=== PATIENT | female | born 1955 | race Caucasian/White ===

== ENCOUNTER → 2022-04-09 | Outpatient (CLI) | payer MEDICARE, SELFPAY ==
[2022-04-09 15:19] LABS: Absolute Lymphocyte Count 1.65 X10^3/uL (0.83-4.51); Absolute Neutrophil Count 3.3 X10^3/uL (2.0-7.7); Basophil# 0.03 X10^3/uL; Basophil% 0.5 % (0-1); Eosinophil# 0.15 X10^3/uL; Eosinophils% 2.7 % (0-5); Hematocrit 40.7 % (37-47); Hemoglobin 13.3 g/dL (12.0-15.0); Lymphocyte # 1.65 X10^3/ul (0.83-4.51); Lymphocyte % 29.3 % (19-41); Mean Corp Hgb Conc 32.7 g/dL (32-36); Mean Corpuscular Hgb 30.8 pg (27.0-32.0); Mean Corpuscular Volume 94.2 fL (81-99); Mean Platelet Vol. 10.2 fl (6.2-12.0); Monocyte# 0.47 X10^3/uL; Monocyte% 8.3 % (0-10); NRBC Flagged by Analyzer 0 % (0-5); Neutrophil # 3.32 X10^3/uL (2.7-7.7); Platelet Count 349 K/mm3 (150-450); RBC Distribution Width SD 44.7 fl (35.1-43.9); Red Blood Count 4.32 M/mm3 (4.2-5.4); White Blood Count 5.6 K/mm3 (4.4-11.0)
[2022-04-09 15:29] LABS: Hemoglobin A1c 5.8 % (3.8-5.6)
[2022-04-09 15:33] LABS: ALB/GLOB Ratio 1.3 RATIO (0.9-2.4); AST(SGOT) 31 U/L (15-37); Alanine Aminotransfer ALT/SGPT 32 U/L (13-56); Albumin, Serum 4.1 g/dL (3.2-5.0); Alkaline Phosphatase 57 U/L (45-117); Anion Gap 4 (5-15); BUN 11 mg/dL (7-18); BUN/Creat Ratio 14.2 RATIO (10-20); Calcium,Total 9.4 mg/dL (8.5-10.1); Chloride 108 mmol/L (98-107); Cholesterol 155 mg/dL (200); Creatinine, Serum 0.77 mg/dL (0.55-1.02); EST Glomerular Filtration Rate 80 mL/min (>60); Est Glom Filt Rate - Afr Amer 96 mL/min (>60); Ferritin 47 ng/mL (8-252); Globulin 3.2 g/dL (2.2-4.2); Glucose 111 mg/dL (74-106); High Density Lipoprotein 72 mg/dL; Potassium 4.1 mmol/L (3.5-5.1); Protein, Total 7.3 g/dL (6.4-8.2); Sodium Level 141 mmol/L (136-145); Triglycerides 131 mg/dL; Very Low Density Lipoprotein 26 mg/dL (5-40)
== END | disposition home or self-care (01) ==
LOC: MTLAB 12:38
PROVIDERS: PCP Family Medicine; Referring Provider Family Medicine; Visit Provider Family Medicine
DX: I10 Essential (primary) hypertension (principal); R19.8 Other specified symptoms and signs involving the digestive system and abdomen; E61.1 Iron deficiency
CPT/HCPCS: 36415; 80053; 80061; 82728; 83036; 84443; 85025

== ENCOUNTER → 2022-07-28 | Outpatient (CLI) | payer MEDICARE, SELFPAY ==
--- NOTE | 2022-07-28 14:21 | CT_ITS ---
STUDY: LOW DOSE CT LUNG CANCER SCREENING REASON FOR EXAM: Female, 66 years old. SCREEN RADIATION DOSAGE (If Supplied By Facility): CTDIvol = ( 1.59 ) mGy, DLP = ( 54.40 ) mGycm TECHNIQUE: No contrast was administered. Low dose technique was utilized (average mAS-38 and kVp 120). 1.25 mm axial source images with a slice interval of 1.25-mm were reconstructed in lung windows. 2.5 mm coronal and sagittal reformats. COMPARISON: None NODULES: No suspicious pulmonary nodules. Emphysema: Lungs are diffusely hyper expanded and mildly hyperlucent. No focal consolidation, effusion, or pneumothorax. Minimal dependent subsegmental atelectasis in lung bases. Mild bilateral apical scarring. Endobronchial lesion: None Aorta: Aortic atherosclerosis without ectasia Heart: No cardiomegaly. No pericardial effusion. Multivessel mild coronary atherosclerosis. Pulmonary artery: No main pulmonary arterial enlargement. Mediastinal nodes: Scattered subcentimeter mediastinal lymph nodes, nonpathologic by size criteria. No bulky hilar adenopathy. Other chest and abdominal findings: Indeterminate posterior lateral exophytic 9 mm left renal lesion. Prior cholecystectomy. CT/Low Dose CT Lung Screening IMPRESSION: No suspicious pulmonary nodules. Indeterminate exophytic left renal 9 mm lesion. Recommend multiphasic contrast-enhanced CT or MRI to further evaluate if not stable on prior exams. IMPORTANT NOTES FOR USE: ACR Lung-RADS Version 1.1 Assessment Categories Release Date: 2018 Category: Coded 0-4 bases on nodule(s) with highest degree of suspicion. Negative screen is defined as categories 1 and 2; a positive screen is defined as categories 3 and 4. Category 3 and 4A nodules that are unchanged on interval CT should be coded as category 2, and individuals returned to screening in 12 months. Category 4X: Category 3 or 4 nodules with additional imaging findings that increase the suspicion of lung cancer, such as spiculation, GGN that doubles in size in 1 year, enlarged lymph notes, etc. Category Modifiers: S (significant finding unrelated to lung cancer) Electronically Signed: Otf Boykin MD at 10:16 EDT ,
== END | disposition home or self-care (01) ==
LOC: CT 14:17
PROVIDERS: PCP Family Medicine; Referring Provider Internal Medicine Pulmonary Disease; Visit Provider Internal Medicine Pulmonary Disease
DX: Z87.891 Personal history of nicotine dependence (principal)
CPT/HCPCS: 71271

== ENCOUNTER → 2023-01-26 | Outpatient (CLI) | payer MEDICARE, SELFPAY ==
[2023-01-26 18:16] LABS: Ferritin 60 ng/mL (8-252)
== END | disposition home or self-care (01) ==
LOC: MTLAB 15:05
PROVIDERS: PCP Family Medicine; Referring Provider Internal Medicine Pulmonary Disease; Visit Provider Internal Medicine Pulmonary Disease
DX: D50.9 Iron deficiency anemia, unspecified (principal)
CPT/HCPCS: 36415; 82728

== ENCOUNTER → 2023-07-29 | Outpatient (CLI) | payer MEDICARE, SELFPAY ==
--- NOTE | 2023-07-29 13:40 | CT_ITS ---
STUDY: LOW DOSE CT LUNG CANCER SCREENING REASON FOR EXAM: Female, 67 years old. HX SMOKING. Patient smoked half a pack per day for 30 years. COPD. RADIATION DOSAGE (If Supplied By Facility): CTDIvol = ( 1.59 ) mGy, DLP = ( 53.41 ) mGycm TECHNIQUE: No contrast was administered. Low dose technique was utilized (average mAS-38 and kVp 120). 1.25 mm axial source images with a slice interval of 1.25-mm were reconstructed in lung windows. 2.5 mm axial source images with a slice interval of 2.5-mm were reconstructed in lung windows. 5.0 mm axial source images with a slice interval of 5.0-mm were reconstructed in soft tissue windows. COMPARISON: Comparison is made with prior study dated July 28, 2022. NODULES: No suspicious nodules are seen. Emphysema: Stable scarring in the apices bilaterally worse on the right side. Mild degree of emphysematous changes. Hyperinflation. Endobronchial lesion: None Aorta: Atherosclerotic plaque formation of the aortic arch. CORONARY ARTERIES: Coronary artery calcification is seen. Heart: Unremarkable Pulmonary artery: Unremarkable Mediastinal nodes: Small mediastinal lymph nodes. Other chest and abdominal findings: CT/Low Dose CT Lung Screening IMPRESSION: Lung-RADS category 2 - Continue annual screening with LDCT in 12 months. IMPORTANT NOTES FOR USE: ACR Lung-RADS Version 1.1 Assessment Categories Release Date: 2018 Category: Coded 0-4 bases on nodule(s) with highest degree of suspicion. Negative screen is defined as categories 1 and 2; a positive screen is defined as categories 3 and 4. Category 3 and 4A nodules that are unchanged on interval CT should be coded as category 2, and individuals returned to screening in 12 months. Category 4X: Category 3 or 4 nodules with additional imaging findings that increase the suspicion of lung cancer, such as spiculation, GGN that doubles in size in 1 year, enlarged lymph notes, etc. Category Modifiers: S (significant finding unrelated to lung cancer) Electronically Signed: Norris Diamond MD at 14:30 EDT ,
== END | disposition home or self-care (01) ==
PROVIDERS: PCP Family Medicine; Referring Provider Internal Medicine Pulmonary Disease; Visit Provider Internal Medicine Pulmonary Disease
DX: Z87.891 Personal history of nicotine dependence (principal)
CPT/HCPCS: 71271

== ENCOUNTER → 2023-10-08 | Outpatient (CLI) | payer MEDICARE, SELFPAY ==
[2023-10-08 15:20] LABS: Absolute Lymphocyte Count 1.76 X10^3/uL (0.83-4.51); Absolute Neutrophil Count 3.7 X10^3/uL (2.0-7.7); Basophil# 0.03 X10^3/uL; Basophil% 0.5 % (0-1); Eosinophil# 0.17 X10^3/uL; Eosinophils% 2.6 % (0-5); Hematocrit 42.8 % (37-47); Lymphocyte # 1.76 X10^3/ul (0.83-4.51); Lymphocyte % 27.3 % (19-41); Mean Corp Hgb Conc 32.7 g/dL (32-36); Mean Corpuscular Volume 94.9 fL (81-99); Mean Platelet Vol. 10.4 fl (6.2-12.0); Monocyte# 0.75 X10^3/uL; Monocyte% 11.6 % (0-10); NRBC Flagged by Analyzer 0 % (0-5); Neutrophil # 3.72 X10^3/uL (2.7-7.7); Neutrophil % 57.8 % (47-70); Platelet Count 347 K/mm3 (150-450); RBC Distribution Width CV 12.6 % (11.6-14.6); Red Blood Count 4.51 M/mm3 (4.2-5.4); White Blood Count 6.4 K/mm3 (4.4-11.0)
[2023-10-08 15:44] LABS: Vitamin D,25 Hydroxy 58.1 ng/mL
[2023-10-08 15:50] LABS: Hemoglobin A1c 5.7 % (3.8-5.6)
[2023-10-08 16:01] LABS: ALB/GLOB Ratio 1.2 RATIO (0.9-2.4); AST(SGOT) 20 U/L (15-37); Alanine Aminotransfer ALT/SGPT 19 U/L (13-56); Alkaline Phosphatase 73 U/L (45-117); Anion Gap 6 (5-15); BUN 10 mg/dL (7-18); BUN/Creat Ratio 12.3 RATIO (10-20); Calcium,Total 9.2 mg/dL (8.5-10.1); Chloride 106 mmol/L (98-107); Cholesterol 145 mg/dL (200); Creatinine, Serum 0.82 mg/dL (0.55-1.02); EST Glomerular Filtration Rate 74 mL/min (>60); Est Glom Filt Rate - Afr Amer 90 mL/min (>60); Follicle Stimulating Hormone 69.8 mIU/mL; Globulin 3.4 g/dL (2.2-4.2); Glucose 104 mg/dL (74-106); High Density Lipoprotein 70 mg/dL; Luteinizing Hormone 37.8 mIU/mL; Potassium 4.3 mmol/L (3.5-5.1); Protein, Total 7.4 g/dL (6.4-8.2); Sodium Level 140 mmol/L (136-145); Triglycerides 67 mg/dL; Very Low Density Lipoprotein 13 mg/dL (5-40)
[2023-10-16 15:07] LABS: Estrogen, Total, Serum 67 pg/mL (40-244)
== END | disposition home or self-care (01) ==
LOC: MTLAB 12:44
PROVIDERS: PCP Family Medicine; Referring Provider Family Medicine; Visit Provider Family Medicine
DX: Z13.1 Encounter for screening for diabetes mellitus (principal); R19.7 Diarrhea, unspecified; I25.10 Atherosclerotic heart disease of native coronary artery without angina pectoris; N95.1 Menopausal and female climacteric states; R73.03 Prediabetes
CPT/HCPCS: 36415; 80053; 80061; 82306; 82672; 83001; 83002; 83036; 84443; 85025

== ENCOUNTER → 2023-11-24 | Outpatient (CLI) | payer MEDICARE, SELFPAY ==
--- NOTE | 2023-11-24 10:45 | US_ITS ---
STUDY: ULTRASOUND OF THE NECK REASON FOR EXAM: Female, 68 years old. Right cheek mass -- TECHNIQUE: Ultrasound evaluation of the right cheek mass was performed with real-time and static post-scale imaging. COMPARISON: None. FINDINGS: 1.6 x 1.3 x 0.8 cm hypoechoic lesion with internal septations in the right cheek. US/Head/Neck Soft Tissue IMPRESSION: 1.6 x 1.3 x 0.8 cm hypoechoic cystic mass with internal septations in the right cheek. Its exact location is unknown. CT neck with contrast will be more helpful for further evaluation. Electronically Signed: Montana Melendez MD at 9:30 EDT ,
== END | disposition home or self-care (01) ==
PROVIDERS: PCP Family Medicine; Referring Provider Surgery Plastic and Reconstructive Surgery; Visit Provider Surgery Plastic and Reconstructive Surgery
DX: L72.0 Epidermal cyst (principal)
CPT/HCPCS: 76536

== ENCOUNTER → 2023-11-29 | Outpatient (CLI) | payer MEDICARE, SELFPAY ==
--- NOTE | 2023-11-29 17:42 | CT_ITS ---
STUDY: CT PARANASAL SINUSES WITH CONTRAST REASON FOR EXAM: Female, 68 years old. Right cheek mass RADIATION DOSAGE (If Supplied By Facility): CTDIvol = ( 29.38 ) mGy, DLP = ( 554.8 ) mGycm TECHNIQUE: The patient was scanned in a multi-detector CT scanner. High resolution transaxial imaging was performed following the intravenous administration of IV 100mL Isovue-370. Sagittal and coronal images were reconstructed. Individualized dose optimization techniques were used for this CT. COMPARISON: None. FINDINGS: FRONTAL SINUSES: Normal development and aeration of the bilateral frontal sinuses without mucosal inflammatory disease. ETHMOIDAL SINUSES: Normal development and aeration of the bilateral ethmoidal air cells without mucosal inflammatory disease. MAXILLARY SINUSES: There is a 1.3 cm polyp or retention cyst along the lateral wall of the left maxillary sinus. SPHENOIDAL SINUSES: Normal aeration of the bilateral sphenoid sinuses and there is no mucosal inflammatory disease. OMU: Normal aeration of the bilateral maxillary infundibulum. Normal uncinate process, ethmoid bulla, and hiatus semilunaris. MIDDLE TURBINATES: Normal bilateral middle turbinates without a roberto bullosa or paradoxical curvature. INFERIOR TURBINATES: Normal bilateral inferior turbinates. NASAL SEPTUM: Normal midline nasal septum and there is no nasal septal mass lesions, deviation or spur. Normal anterior cranial fossa, jose cruz sunil and cribriform plate. Normal bilateral orbital contents. Normal nasopharynx without adenoidal pad hypertrophy, or a posterior nasopharyngeal retention cyst. The palpable lump corresponds to 1.2 cm x 0.9 cm well-defined hypodense nodule just deep to the skin layer within the overlying subcutaneous tissue. This may represent a sebaceous cyst. CT/Sinus/Facial Bone WITH Contras IMPRESSION: The palpable lump corresponds to 1.2 cm x 0.9 cm well-defined hypodense nodule just deep to the skin layer within the overlying subcutaneous tissue. Electronically Signed: Norris Diamond MD at 15:20 EDT ,
[2023-11-29 18:04] LABS: CREATININE FINGERSTICK < 1.0 mg/dL (0.55-1.02); EGFR FINGERSTICK > 60.0000 mL/min (>60)
== END | disposition home or self-care (01) ==
PROVIDERS: PCP Family Medicine; Referring Provider Surgery Plastic and Reconstructive Surgery; Visit Provider Surgery Plastic and Reconstructive Surgery
DX: L72.0 Epidermal cyst (principal)
CPT/HCPCS: 70487

== ENCOUNTER 2023-12-08 10:26 | Day surgery (SDC) | payer MEDICARE, SELFPAY ==
[2023-12-08] VITALS (8 sets, daily range): BP systolic 129–146; BP diastolic 65–122; PULSE 54–82; RESP 16–18; TEMP 36.4–36.8; O2SAT 97–100; BMI 26.6
[2023-12-08] MEDS: Lactated Ringers 1,000 ML 15 ML IV (10:53)
--- NOTE | 2023-12-08 12:20 | CYST_PTH ---
PATIENT: ROXY JACKSON [place] [facility] [facility] [id number] AGE/SX: 68/F ROOM: RE12/08/[address]: Dr. Bharath Valiente MD : [id number] BED: DIS: 12/08/2023 SPEC #: [id number] RECD: 12/09/23 08:53 STATUS: KANNAN ESPINOZAGrisel #: [id number] YAMINI: 12/08/23 12:[address]: Bharath Valiente DEPT: SURGICAL PATHOLOGY RECD BY: Amber Holloway ENTERED: 12/09/23 10:00 SP TYPE: Cyst OTHR DR: Odilon Benavidez MD Tissues: CYST Procedures: Surgery Specimen Level III HEADER OPERATION: Cyst removal right cheek with intermediate closure PRE-OP DIAGNOSIS: Epidermal inclusion cyst TISSUE SUBMITTED: Right cheek cyst MICROSCOPIC DIAGNOSIS Cyst of right cheek, excision: Epidermal inclusion cyst. AM.mr 12/10/2023 MICROSCOPIC DESCRIPTION Slides are reviewed. GROSS DESCRIPTION Received in fixative is one container labeled with the patient's name and designated Right cheek cyst. The specimen consists of a piece of chatman-white previously ruptured cyst measuring 1.5 x 1.5 x 0.8cm. Also present in the container are two detached pieces of skin and soft tissue measuring in aggregate 2.5 x 0.5 x 0.3cm. Cyst is serially sectioned. The entire specimen is submitted in one cassette. 12/09/2023 TC:5 CPT:01376
--- NOTE | 2023-12-08 13:57 | PCM.PRE.AN2 ---
ASA Classification* ASA Classification ASA Classification: 3 Assessment & Plan Anesthesia* Anesthesia Assessment Anesthesia Assessment: Discussed sedation and/or anesthesia options, risks, benefits, and alternatives with patient/parents/legal guardian/POA. Questions invited. The patient/parents/legal guardian/POA seems to understand and agrees to proceed with anesthesia plan. Reviewed the physical assessment, medical history, allergy history and patient home medications list prior to surgery/procedure/anesthetic and documented any changes. Performed airway and anesthesia risk assessments. Anesthesia Type Anesthesia Type: General History Source History Obtained from:: Patient and Chart Anesthesia Focused Assessment* Temperature: 97.6 F Pulse Rate: 54 Blood Pressure: 135/65 Respiratory Rate: 17 Pulse Ox: 100 Oxygen Delivery Method: Room Air Airway Assessment Mouth opens: >3 cm Mallampati Score: IV Teeth Condition: Full (Patient has full upper plate.) and Partial (Patient has partial lower plate.) Neck Range of motion (ROM): Full ROM Focused Labs Anesthesia Preop lab: CBC WBC 6.4 K/mm3 (4.4-11.0) 10/08/23 12:46 RBC 4.51 M/mm3 (4.2-5.4) 10/08/23 12:46 Hgb 14.0 g/dL (12.0-15.0) 10/08/23 12:46 Hct 42.8 % (37-47) 10/08/23 12:46 Plt Count 347 K/mm3 (150-450) 10/08/23 12:46 CHEMISTRY Potassium 4.3 mmol/L (3.5-5.1) 10/08/23 12:46 Sodium 140 mmol/L (136-145) 10/08/23 12:46 BUN 10 mg/dL (7-18) 10/08/23 12:46 Creatinine 0.82 mg/dL (0.55-1.02) 10/08/23 12:46 Glucose 104 mg/dL (74-106) 10/08/23 12:46 TSH 0.710 uIU/mL (0.358-3.740) 10/08/23 12:46 COAG Pre-Assessment Diagnosis/Proposed Procedure Planned Operative Procedure(s): CYST,REMOVAL RIGHT CHEEK Anesthesia History Anesthesia History - clinical biostatistician: Anesthesia History - clinical biostatistician Hx Hospitalization No 11/29/23 12:50 Any Problems With Anesthesia Yes: N,V 11/29/23 12:50 Cholinesterase deficiency No 11/29/23 12:50 You/Your Family Experience No 11/29/23 12:50 fever (hyperthermia) with Relationship Recent Exposure to Contagious No 12/08/23 10:53 Disease Does patient have nerve No 11/29/23 12:50 stimulator Patient instructed to have device shut off --Does patient have Pacemaker No 12/08/23 10:53 or ICD? When Was Last Pacemaker Check QUESTION #4 FULL TEXT: You/Your Family Experience fever (hyperthermia) with Anesthesia Last Oral Intake Last Oral intake: Last Oral Intake NPO since Meds taken in AM with sips of water? Meds patient instructed to take am of surgery Any additional information?: Yes NPO since: 00:00 Meds taken in AM with sips of water?: Yes PONV PONV - clinical biostatistician: PONV - clinical biostatistician Female Yes 11/29/23 12:50 HX of Motion Sickness No 11/29/23 12:50 HX of N/V After Surgery Yes 11/29/23 12:50 Non-Smoker No 11/29/23 12:50 Duration of Surgery greater No 11/29/23 12:50 than 60 minutes Number of Risk Factors 2 11/29/23 12:50 PONV Score Moderate Risk 11/29/23 12:50 Height & Weight Height & Weight: Anesthesia: Height & Weight Height 5 ft 1 in 12/08/23 10:53 Weight: 64 kg 12/08/23 10:53 Body Mass Index (BMI) 26.6 12/08/23 10:53 Respiratory Assessment Respiratory Assessment - clinical biostatistician: Respiratory Tract Infection Hx - clinical biostatistician Hx Respiratory Tract Infection No 11/29/23 12:50 STOP Sleep Apnea STOP Sleep Apnea - clinical biostatistician: STOP Sleep Apnea - clinical biostatistician Hx Hypertension Yes: CONTROLLED WITH MED 11/29/23 12:50 Hx Sleep Apnea No 11/29/23 12:50 CPAP BIPAP Do you snore loudly (louder Yes 11/29/23 12:50 than talking or can be heard Do you often feel tired/ No 11/29/23 12:50 fatigued/ sleepy during daytime? Has anyone observed you stop No 11/29/23 12:50 breathing during sleep? STOP Results Positive 11/29/23 12:50 QUESTION #5 FULL TEXT : Do you snore loudly (louder than talking or can be heard through closed doors)? 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 - clinical biostatistician: Tobacco Use History - clinical biostatistician Tobacco Use Smoking Status Current some day smoker 11/29/23 12:50 Hx Tobacco Use Yes 11/29/23 12:50 Years Smoking Packs Smoked per Day Smoking Cessation Date was within the last 15 years Hx Smoking Cessation Date Hx Smoking Cessation Counseling Any additional information?: Yes Smoking Status: Former smoker (Patient quit smoking November 24, 2023.) Hematologic Medial History Hematologic Hx - clinical biostatistician: Hematologic Medical Hx - juvenile counselor Hx of Blood Transfusion No 11/29/23 12:50 Hx of Transfusion in last 3 No 11/29/23 12:50 Months Date of Last Transfusion (if within last 3 months) Ever experience any problems No 11/29/23 12:50 with transfusion(s)? Specify any problems Hx of Preganancy in last 3 No 11/29/23 12:50 Months Nurse Filling Out Transfusion DSCHRIBER 11/29/23 12:50 & Questions: Date: 11/29/23 11/29/23 12:50 Time: 12:52 11/29/23 12:50 Patient unable to answer at this time (ie. confused, unrespo /Reproduction History /Reproductive History - clinical biostatistician: /Reproductive Hx- clinical biostatistician Hx Now No 11/29/23 12:50 Gestational Age (in weeks): EDC: Hx Hx Para Hx Section SAB No 11/29/23 12:50 Active Medications Active Medications: Current Medications Generic Name Dose Route Start Last Admin Trade Name Freq PRN Reason Stop Dose Admin Lactated Ringer's 1,000 mls @ 15 mls/hr 12/08/23 10:45 12/08/23 10:53 IV 12/14/23 00:04 15 mls/hr .Q48H JANESSA Administration Protocol PFSH Medical History Wears glasses Wears partial dentures Wears dentures Post-menopausal Low iron High cholesterol Restless legs Hoarseness Leg cramps History of heart attack Cardiology follow-up encounter History of stress test Hx of hiatal hernia Hypercholesterolemia Osteoporosis Hypertension GERD (gastroesophageal reflux disease) Cigarette smoker one half pack a day or less COPD (chronic obstructive pulmonary disease) Home Medications ?Medication ?Instructions ?Recorded ?Last Taken ?Type aspirin 81 mg chewable tablet 81 mg PO QDAY 11/11/23 12/01/23 History fluticasone fur. 100 mcg-umeclid 1 ea inhalation QDAY 11/11/23 12/08/23 History 62.5 mcg-vilant 25 mcg inhalat.powder (Trelegy Ellipta) metoprolol tartrate 25 mg tablet 25 mg PO BID 11/11/23 12/08/23 History rosuvastatin 20 mg tablet 20 mg PO QHS 11/11/23 12/07/23 History albuterol sulfate 90 mcg/actuation 1 puff inhalation BID PRN PRN 11/29/23 Unknown History aerosol inhaler shortness of breath or wheezing ascorbic acid (vitamin C) 250 mg 250 mg PO BID 11/29/23 11/24/23 History tablet ferrous gluconate 324 mg (37.5 mg 324 mg PO BID 11/29/23 11/24/23 History iron) tablet ginkgo biloba 60 mg tablet 120 mg PO DAILY 11/29/23 12/07/23 History varenicline 1 mg tablet (Chantix 1 mg PO BID 11/29/23 12/07/23 History Continuing Month Box) cephalexin 500 mg capsule 500 mg PO Q8H 7 days #21 caps 12/08/23 Unknown Rx oxycodone 5 mg tablet 5 mg PO Q4H PRN pain 5 days #10 12/08/23 Unknown Rx tabs Allergy/AdvReac Type Severity Reaction Status Date / Time No Known Allergies Allergy Verified 12/08/23 10:51 Surgical History History of cholecystectomy History of carpal tunnel surgery of left wrist S/P excision of lipoma Social History Smoking Status: Former smoker (Patient quit smoking November 24, 2023.) Tobacco: How many years used: 52 Review of Systems (Anesthesia) ROS Narrative System reviewed and no additional complaints, except as documented.
--- NOTE | 2023-12-08 14:46 | HP.PCM.SX_ITS ---
HPI - General HPI Narrative ROXY JACKSON, is a 68 F who presents with right cheek cyst. Marked in preop Current Encounter (DATE OF SURGERY H&P UPDATE): I saw and examined the patient this morning in pre-operative holding. We discussed risks and benefits of today's surgery and they would like to proceed. NO CHANGE in health history since last seen and evaluated. Ready to proceed with surgery. [facility] Medical History Wears glasses Wears partial dentures Wears dentures Post-menopausal Low iron High cholesterol Restless legs Hoarseness Leg cramps History of heart attack Cardiology follow-up encounter History of stress test Hx of hiatal hernia Hypercholesterolemia Osteoporosis Hypertension GERD (gastroesophageal reflux disease) Cigarette smoker one half pack a day or less COPD (chronic obstructive pulmonary disease) Home Medications ?Medication ?Instructions ?Recorded ?Last Taken ?Type aspirin 81 mg chewable tablet 81 mg PO QDAY 11/11/23 12/01/23 History fluticasone fur. 100 mcg-umeclid 1 ea inhalation QDAY 11/11/23 12/08/23 History 62.5 mcg-vilant 25 mcg inhalat.powder (Trelegy Ellipta) metoprolol tartrate 25 mg tablet 25 mg PO BID 11/11/23 12/08/23 History rosuvastatin 20 mg tablet 20 mg PO QHS 11/11/23 12/07/23 History albuterol sulfate 90 mcg/actuation 1 puff inhalation BID PRN PRN 11/29/23 Unknown History aerosol inhaler shortness of breath or wheezing ascorbic acid (vitamin C) 250 mg 250 mg PO BID 11/29/23 11/24/23 History tablet ferrous gluconate 324 mg (37.5 mg 324 mg PO BID 11/29/23 11/24/23 History iron) tablet ginkgo biloba 60 mg tablet 120 mg PO DAILY 11/29/23 12/07/23 History varenicline 1 mg tablet (Chantix 1 mg PO BID 11/29/23 12/07/23 History Continuing Month Box) cephalexin 500 mg capsule 500 mg PO Q8H 7 days #21 caps 12/08/23 Unknown Rx oxycodone 5 mg tablet 5 mg PO Q4H PRN pain 5 days #10 12/08/23 Unknown Rx tabs Allergy/AdvReac Type Severity Reaction Status Date / Time No Known Allergies Allergy Verified 12/08/23 10:51 Surgical History History of cholecystectomy History of carpal tunnel surgery of left wrist S/P excision of lipoma Social History Smoking Status: Former smoker (Patient quit smoking November 24, 2023.) Tobacco: How many years used: 52 Vital Signs Vital Signs Vital Signs: 12/08/23 10:53 12/08/23 10:53 12/08/23 14:27 Temperature 97.6 F L 97.6 F L Temperature Source Temporal Pulse Rate 54 L 54 L Respiratory Rate 17 17 Respiratory Pattern Normal Blood Pressure 135/65 H 135/65 H Blood Pressure Mean 88 Blood Pressure Source Monitor Blood Pressure Position Semi-Fowlers Blood Pressure Location Left Arm Pulse Ox 100 100 Oxygen Delivery Method Room Air Room Air Weight Weight: 141 lb 1.533 oz Body Mass Index (BMI) 26.6 Physical Exam Narrative R cheek cyst. Stable. NO signs of infection today. Assessment & Plan Assessment/Plan (1) Epidermal inclusion cyst: PLAN: Plan I talked the patient extensively about the risks of surgery, including bleeding, infection, damage to surrounding structures (especially the facial nerve), poor scaring/cosmesis, surgical site dehiscence and wound formation, need for wound care, need for repeat operations, failure to obtain the desired result, DVT/PE, and the risks of anesthesia including . All of their questions were answered, and they agreed to proceed with surgery. INTERVAL H&P PLAN, DATE OF SURGERY: We will proceed with surgery today.
[2023-12-08] MEDS: Cefazolin 2 GM in Syringe IV (16:02)
--- NOTE | 2023-12-08 16:15 | PCM.OP.BLANK ---
Operative Report Date of Procedure: 12/08/23 Surgery/Procedure Date: 08 December 2023 Incision/Procedure Start Time: 16:30 Incision Close/Procedure End Time: 16:47 PATIENT: Wilma Rodriguez PRE-OPERATIVE DIAGNOSIS: Right cheek cyst POST-OPERATIVE DIAGNOSIS: Same PROCEDURE PERFORMED: 1) Excision of subcutaneous mass, 1.5 x 1.5 cm, CPT: 20526 2) Intermediate closure of wound, 2 cm, CPT 60651 OPERATIVE FINDINGS: Right cheek epidermal inclusion cyst likely INDICATIONS: Patient is a delightful 68-year-old female who recently quit smoking. She has been doing quite well and would like the right cheek cyst removed. We discussed risks of infection, bleeding, damage to surrounding structures, return of the mass and need for repeat surgeries, healing problems/dehiscence of the wound and need for wound care, and risks from anesthesia. We further discussed the risks of poor scarring and she understands she will have a scar on her face after this procedure. I reviewed the preoperative imaging including a CT scan. Patient understands risk to facial nerve. OPERATIVE DETAILS: The patient was correctly identified in preoperative holding, and I marked them (the mass was confirmed, the patient agreed with the site marking). They were taken back to the operating room where they were administered general anesthesia and placed in the supine positioning. Care was taken to pad all bony prominences and protect the face and eyes . Once appropriate level of anesthesia was obtained, the site was prepped and draped in sterile fashion. A 15 blade scalpel was used to make a direct incision over the mass and excise some of the sinus tract, and dissection was carried out with tenotomy and electrocautery around the mass which was in the subcutaneous layer. It was then removed and sent to pathology. Hemostasis was obtained with Bovie electrocautery. The wound was irrigated with copious amounts of normal saline. It measured 1.5 x 1.5 centimeters. Attention was then turned to intermediate closure of the wound, which was 2 centimeters long. Deep sutures were placed 3-0 monocryl followed by a running subcuticular suture with 4-0 monocryl. A local block was then performed with 7 cc of 1% lidocaine with 1:100,000 epinephrine. Steri-Strips were applied and a Primapore dressing was placed on top. The patient tolerated the procedure well and was awakened and taken the PACU in stable condition. ASA: 2 EBL: Minimal Anesthesia: General With local IVF: 800 cc LR UOP: Unmeasured Specimens: Right cheek cyst Preoperative 2 g of Ancef POST-OPERATIVE PLAN: Follow-up in 1 week to review pathology and for wound check
[2023-12-08] MEDS: Lidocaine 1% /Epi 1:100 (20ml) 20 ML Vial (16:47)
--- NOTE | 2023-12-08 16:57 | PCM.POST.ANE ---
Anesthesia: Postop Eval I Current Vital Signs Temperature: 98.3 F Pulse Rate: 78 Blood Pressure: 137/122 Respiratory Rate: 18 Pulse Ox: 99 Assessment Airway patent: Yes Spontaneous unlabored respirations: Yes nausea: No Vomiting: No Anesthesia Complication: No Fluid Hydration Crystalloid volume administer (ml): 800 Total IV fluid infused: 800 Progress Note Anesthesia document: Postop Eval 1 completed: Yes
[2023-12-08] MEDS: oxyCODONE 5 MG Tablet PO (17:44)
--- NOTE | 2023-12-09 01:30 | POSTOPAN2_ITS ---
Anesthesia Postop Eval I Sum Postop Eval Completion status Anesthesia document: Postop Eval 1 completed: Yes Anesthesia Postop Eval I Summary Anesthesia Postop Eval I Summary: Anesthesia Postop Eval I: Assessment Summary Airway patent Yes 12/08/23 16:57 [email or web address] Spontaneous unlabored Yes 12/08/23 16:57 [email or web address] [email or web address] respirations Mental status nausea No 12/08/23 16:57 RUBBER [email or web address].CSIR Vomiting No 12/08/23 16:57 RUBBER [email or web address].CSIR Anesthesia Postop Eval I: Fluid Summary Crystalloid volume administer 800 12/08/23 16:57 [email or web address] [email or web address].CSIR (ml) Colloids volume administered ( ml) Blood Product volume administered (ml) Total IV fluid infused 800 12/08/23 16:57 RUBBER [email or web address].CSIR Anesthesia Postop Eval I: Summary Notes Anesthesia Complication No 12/08/23 16:57 RUBBER [email or web address].CSIR Anesthesia Complication Comment: Post-operative progress note Anesthesia: Postop Eval II Evaluation Mental status: Awake and Calm Pain Level: 1 nausea: No Vomiting: No Complications Anesthesia Complication: No
--- NOTE | 2023-12-09 01:30 | PCM.POSTANE2 ---
Anesthesia Postop Eval I Sum Postop Eval Completion status Anesthesia document: Postop Eval 1 completed: Yes Anesthesia Postop Eval I Summary Anesthesia Postop Eval I Summary: Anesthesia Postop Eval I: Assessment Summary Airway patent Yes 12/08/23 16:57 TRANSITIONAL LIVING SPECIALIST.CSIR Spontaneous unlabored Yes 12/08/23 16:57 TRANSITIONAL LIVING SPECIALIST.CSIR respirations Mental status nausea No 12/08/23 16:57 TRANSITIONAL LIVING SPECIALIST.CSIR Vomiting No 12/08/23 16:57 TRANSITIONAL LIVING SPECIALIST.CSIR Anesthesia Postop Eval I: Fluid Summary Crystalloid volume administer 800 12/08/23 16:57 TRANSITIONAL LIVING SPECIALIST.CSIR (ml) Colloids volume administered ( ml) Blood Product volume administered (ml) Total IV fluid infused 800 12/08/23 16:57 TRANSITIONAL LIVING SPECIALIST.CSIR Anesthesia Postop Eval I: Summary Notes Anesthesia Complication No 12/08/23 16:57 TRANSITIONAL LIVING SPECIALIST.CSIR Anesthesia Complication Comment: Post-operative progress note Anesthesia: Postop Eval II Evaluation Mental status: Awake and Calm Pain Level: 1 nausea: No Vomiting: No Complications Anesthesia Complication: No
== END 2023-12-08 17:56 | disposition home or self-care (01) ==
LOC: SDC 10:28 → AC 10:30
PROVIDERS: PCP Family Medicine; Referring Provider Surgery Plastic and Reconstructive Surgery; Visit Provider Surgery Plastic and Reconstructive Surgery
PROC: (CPT 11443; principal; 2023-12-08 12:10)
DX: L72.0 Epidermal cyst (principal); J44.9 Chronic obstructive pulmonary disease, unspecified; Z79.82 Long term (current) use of aspirin; E78.00 Pure hypercholesterolemia, unspecified; I10 Essential (primary) hypertension; Z90.49 Acquired absence of other specified parts of digestive tract; I25.2 Old myocardial infarction; F17.210 Nicotine dependence, cigarettes, uncomplicated; Z87.19 Personal history of other diseases of the digestive system; Z86.018 Personal history of other benign neoplasm; R52 Pain, unspecified
CPT/HCPCS: 11443; 12051; 00300; J7120; 88304; J2405

== ENCOUNTER 2024-01-12 05:57 | Day surgery (SDC) | payer MEDICARE, SELFPAY ==
[2024-01-12] VITALS (13 sets, daily range): BP systolic 129–151; BP diastolic 67–77; PULSE 56–76; RESP 12–18; TEMP 36.1–36.7; O2SAT 93–100; BMI 27.5
[2024-01-12] MEDS: Lactated Ringers 1,000 ML 15 ML IV (06:40)
--- NOTE | 2024-01-12 07:06 | EKG12_ITS ---
Test Reason : PREOP Blood Pressure : */* mmHG Vent. Rate : 53 BPM Atrial Rate : 53 BPM P-R Int : 136 ms QRS Dur : 70 ms QT Int : 418 ms P-R-T Axes : 62 46 40 degrees QTcB Int : 392 ms Sinus bradycardia Nonspecific T wave abnormality Abnormal ECG No previous ECGs available Confirmed by NAYLA DOMINGO ([id number]), book editor DARIELA LOPEZ ([id number]) on 01/17/2024 6:15:44 AM Referred By: Bharath Valiente Confirmed By: NAYLA DOMINGO
--- NOTE | 2024-01-12 07:10 | PRE.ANES_ITS ---
ASA Classification* ASA Classification ASA Classification: 2 Assessment & Plan Anesthesia* Anesthesia Assessment Anesthesia Assessment: Discussed sedation and/or anesthesia options, risks, benefits, and alternatives with patient/parents/legal guardian/POA. Questions invited. The patient/parents/legal guardian/POA seems to understand and agrees to proceed with anesthesia plan. Reviewed the physical assessment, medical history, allergy history and patient home medications list prior to surgery/procedure/anesthetic and documented any changes. Performed airway and anesthesia risk assessments. Anesthesia Type Anesthesia Type: General Anesthesia Focused Assessment* Temperature: 97.8 F Pulse Rate: 57 Blood Pressure: 129/67 Respiratory Rate: 16 Pulse Ox: 100 Airway Assessment Mouth opens: >3 cm Mallampati Score: II Focused Labs Anesthesia Preop lab: CBC WBC 6.4 K/mm3 (4.4-11.0) 10/08/23 12:46 RBC 4.51 M/mm3 (4.2-5.4) 10/08/23 12:46 Hgb 14.0 g/dL (12.0-15.0) 10/08/23 12:46 Hct 42.8 % (37-47) 10/08/23 12:46 Plt Count 347 K/mm3 (150-450) 10/08/23 12:46 CHEMISTRY Potassium 4.3 mmol/L (3.5-5.1) 10/08/23 12:46 Sodium 140 mmol/L (136-145) 10/08/23 12:46 BUN 10 mg/dL (7-18) 10/08/23 12:46 Creatinine 0.82 mg/dL (0.55-1.02) 10/08/23 12:46 Glucose 104 mg/dL (74-106) 10/08/23 12:46 TSH 0.710 uIU/mL (0.358-3.740) 10/08/23 12:46 COAG Pre-Assessment Diagnosis/Proposed Procedure Planned Operative Procedure(s): (B) Brow lift and upper blepharoplasty Anesthesia History 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 When Was Last Pacemaker Check QUESTION #4 FULL TEXT: You/Your Family Experience fever (hyperthermia) with Anesthesia Last Oral Intake Last Oral intake: Last Oral Intake NPO since 23:00 01/12/24 06:29 Meds taken in AM with sips of Yes 01/12/24 06:29 water? 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 Female Yes 12/29/23 14:06 HX of Motion Sickness No 12/29/23 14:06 HX of N/V After Surgery Yes 12/29/23 14:06 Non-Smoker Yes 12/29/23 14:06 Duration of Surgery greater Yes 12/29/23 14:06 than 60 minutes Number of Risk Factors 4 12/29/23 14:06 PONV Score Severe Risk 12/29/23 14:06 Height & Weight Height & Weight: Anesthesia: Height & Weight Height 5 ft 1 in 01/12/24 06:29 Weight: 66 kg 01/12/24 06:29 Body Mass Index (BMI) 27.5 01/12/24 06:29 Respiratory Assessment Respiratory Assessment - pilot plant operator: Respiratory Tract Infection Hx - pilot plant operator Hx Respiratory Tract Infection No 12/29/23 14:06 STOP Sleep Apnea STOP Sleep Apnea - pilot plant operator: STOP Sleep Apnea - pilot plant operator Hx Hypertension Yes: CONTROLLED WITH MED 12/29/23 14:06 Hx Sleep Apnea No 12/29/23 14:06 CPAP BIPAP Do you snore loudly (louder No 12/29/23 14:06 than talking or can be heard Do you often feel tired/ No 12/29/23 14:06 fatigued/ sleepy during daytime? Has anyone observed you stop No 12/29/23 14:06 breathing during sleep? STOP Results Negative 12/29/23 14:06 QUESTION #5 FULL TEXT : Do you snore loudly (louder than talking or can be heard through closed doors)? 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 Specify any problems Hx of Preganancy in last 3 N/A 12/29/23 14:06 Months Nurse Filling Out Transfusion NBUCHER 12/29/23 14:06 & Questions: Date: 12/29/23 12/29/23 14:06 Time: 14:08 12/29/23 14:06 Patient unable to answer at this time (ie. confused, unrespo /Reproduction History /Reproductive History - pilot plant operator: /Reproductive Hx- pilot plant operator Hx Now Gestational Age (in weeks): EDC: Hx Hx Para Hx Section SAB No 12/29/23 14:06 Active Medications Active Medications: Current Medications Generic Name Dose Route Start Last Admin Trade Name Freq PRN Reason Stop Dose Admin Cefazolin Sodium 2 gm/ N/A 20 mls @ 400 mls/hr 01/12/24 07:30 IV 01/12/24 07:32 PREOP ONE Lactated Ringer's 1,000 mls @ 15 mls/hr 01/12/24 06:45 01/12/24 06:40 IV 01/17/24 20:04 15 mls/hr .Q48H JANESSA Administration Protocol PFSH Medical History Former smoker Wears glasses Wears partial dentures Wears dentures Post-menopausal Low iron High cholesterol Restless legs Hoarseness Leg cramps History of heart attack Cardiology follow-up encounter History of stress test Hx of hiatal hernia Hypercholesterolemia Osteoporosis Hypertension GERD (gastroesophageal reflux disease) Cigarette smoker one half pack a day or less COPD (chronic obstructive pulmonary disease) Home Medications ?Medication ?Instructions ?Recorded ?Last Taken ?Type aspirin 81 mg chewable tablet 81 mg PO QDAY 11/11/23 01/05/24 History fluticasone fur. 100 mcg-umeclid 1 ea inhalation QDAY 11/11/23 12/08/23 History 62.5 mcg-vilant 25 mcg inhalat.powder (Trelegy Ellipta) metoprolol tartrate 25 mg tablet 25 mg PO BID 11/11/23 01/12/24 History rosuvastatin 20 mg tablet 20 mg PO QHS 11/11/23 01/11/24 History albuterol sulfate 90 mcg/actuation 1 puff inhalation BID PRN PRN 11/29/23 01/12/24 History aerosol inhaler shortness of breath or wheezing ascorbic acid (vitamin C) 250 mg 250 mg PO BID 11/29/23 01/12/24 History tablet ferrous gluconate 324 mg (37.5 mg 324 mg PO BID 11/29/23 01/12/24 History iron) tablet ginkgo biloba 60 mg tablet 120 mg PO DAILY 11/29/23 01/05/24 History Allergy/AdvReac Type Severity Reaction Status Date / Time No Known Allergies Allergy Verified 12/31/23 13:35 Surgical History History of cholecystectomy History of carpal tunnel surgery of left wrist S/P excision of lipoma Social History Smoking Status: Former smoker Tobacco: How many years used: 52 Review of Systems (Anesthesia) ROS Narrative System reviewed and no additional complaints, except as documented.
--- NOTE | 2024-01-12 07:19 | HP.PCM.SX_ITS ---
HPI - General HPI Narrative Wilma Mcfarland is a delightful 68 year old female with past medical history of COPD (7 to 8 cigarettes/day still), hypertension (on metoprolol), and a heart attack several years ago (takes a baby aspirin) who presents as a consult from [facility] dermatology (Dr. Hairston) for possible removal of a cyst on her right cheek. The cyst was removed 10 years ago by another surgeon and was done transorally, but it started coming back about 3 years ago. It is painful to the touch at times. It never drains. She does not have any new lumps or bumps on the right side of her neck. She is also here for her eyelids. She has issues seeing with regards to operate gaze as her upper eyelids are obstructing her vision. The patient reports that they do not have any personal or family history of bleeding or clotting disorders. She is on 1 L of oxygen at night as she desaturated during a sleep study and was placed on the oxygen long-term. Otherwise no home oxygen. 25 Nov 2023: Patient doing well. Reports that she has started Chantix and is also decreasing cigarettes to 2 to 3 cigarettes/day. She also reports that she got an ultrasound and the results were reviewed with her regarding the right cheek cyst. Other changes in health history. 17 Dec 2023: Doing well post op. No problems today. She's happy with the result. We reviewed the pathology (benign epidermal inclusion cyst). 31 Dec 2023: Patient doing well. Here for follow-up preoperative evaluation for her upcoming brow lift and blepharoplasty. Patient is still cigarette free and doing quite well (has not even needed Chantix anymore). She is very happy with the cyst removal procedure and would like to go forward with the brow lift and blepharoplasty. We talked about the risk benefits and alternatives to the procedure today. Blood pressure has been well-controlled Current Encounter (DATE OF SURGERY H&P UPDATE): I saw and examined the patient this morning in pre-operative holding. We discussed risks and benefits of today's surgery and they would like to proceed. NO CHANGE in health history since last seen and evaluated. Ready to proceed with surgery. She has been cleared by her PCP for surgery and has been completely off of the cigarettes for greater than 6 weeks. [address] aspirin[address] [facility] Medical History Former smoker Wears glasses Wears partial dentures Wears dentures Post-menopausal Low iron High cholesterol Restless legs Hoarseness Leg cramps History of heart attack Cardiology follow-up encounter History of stress test Hx of hiatal hernia Hypercholesterolemia Osteoporosis Hypertension GERD (gastroesophageal reflux disease) Cigarette smoker one half pack a day or less COPD (chronic obstructive pulmonary disease) Home Medications ?Medication ?Instructions ?Recorded ?Last Taken ?Type aspirin 81 mg chewable tablet 81 mg PO QDAY 11/11/23 01/05/24 History fluticasone fur. 100 mcg-umeclid 1 ea inhalation QDAY 11/11/23 12/08/23 History 62.5 mcg-vilant 25 mcg inhalat.powder (Trelegy Ellipta) metoprolol tartrate 25 mg tablet 25 mg PO BID 11/11/23 01/12/24 History rosuvastatin 20 mg tablet 20 mg PO QHS 11/11/23 01/11/24 History albuterol sulfate 90 mcg/actuation 1 puff inhalation BID PRN PRN 11/29/23 01/12/24 History aerosol inhaler shortness of breath or wheezing ascorbic acid (vitamin C) 250 mg 250 mg PO BID 11/29/23 01/12/24 History tablet ferrous gluconate 324 mg (37.5 mg 324 mg PO BID 11/29/23 01/12/24 History iron) tablet ginkgo biloba 60 mg tablet 120 mg PO DAILY 11/29/23 01/05/24 History Allergy/AdvReac Type Severity Reaction Status Date / Time No Known Allergies Allergy Verified 12/31/23 13:35 Surgical History History of cholecystectomy History of carpal tunnel surgery of left wrist S/P excision of lipoma Social History Smoking Status: Former smoker Tobacco: How many years used: 52 Vital Signs Vital Signs Vital Signs: 01/12/24 06:29 01/12/24 06:29 01/12/24 07:11 Temperature 97.8 F 97.8 F Temperature Source Temporal Pulse Rate 57 L 57 L Respiratory Rate 16 16 Respiratory Pattern Normal Blood Pressure 129/67 H 129/67 H Blood Pressure Mean 87 Blood Pressure Source Monitor Blood Pressure Position Semi-Fowlers Blood Pressure Location Left Arm Pulse Ox 100 100 Oxygen Delivery Method Room Air Weight Weight: 145 lb 8.081 oz Body Mass Index (BMI) 27.5 Physical Exam Narrative Pupils: PERRL EOM: EOM intact bilaterally Forehead: Chronic frontalis use with thick rhytids. Frontalis muscle overuse secondary to raising brows to improve vision given droopy brows and eyelids. Her forehead is convex and is long. Eyebrows: Eyebrows are just below the orbital rim bilaterally Eyelids: * MRD 1 was 4 mm * Good levator function (15 mm) * No lagophthalmos * Upper lid dermatochalasis bilaterally, there is obstructing vertical gaze bilaterally secondary to the skin. The skin is hanging over his eyelashes and the lateral portions of his lid margin. Note: She relaxes her frontalis, the amount of skin overhanging the eyelashes. When I raise her brows, the dermatochalasis/obstruction improved greatly. Right cheek: Linear scar healing well with minimal redness. Acceptable. Facial nerve: Able to raise eyebrows, wrinkle forehead and eyelids/close eyelids, raise nasolabial fold for a smile, purse lips, and move lower lip to show lower teeth all symmetrically. Assessment & Plan Assessment/Plan (1) Brow ptosis, bilateral: (2) Dermatochalasis of both eyelids: PLAN: Plan Plan is for a pretrichial/coronal brow lift and subsequent upper lid blepharoplasty (skin and a strip of orbicularis muscle and possible fat removal). I talked her extensively about scar placement for this, and we talked about how she has a relatively thin/high hairline that may not hide the scar well and the pretrichal scar may be noticeable, but also may pull the scalp forward/shorten forehead slightly; however, I talked her about the alternative which is an endoscopic brow lift which would lengthen her already long forehead. Along with unpredictable scarring and hairline position change, we also talked about the risks of asymmetry, the risk of bleeding, infection, damage to surrounding structures including the frontal nerve branch of the facial nerve and the sensory nerves of the forehead (we talked about potential permanent numbness on the scalp), and she was accepting of these risks. I also talked to her about deferring the blepharoplasty if I obtained a high degree of brow lift (as I would overcorrect a little with the brows as they will settle over time). He understands the risks of lagophthalmos, and the risk of need for repeat operations. She understands the risk of dry eyes. We also talked about the risks of anesthesia and blood clots. Her Caprini score is a 4 INTERVAL H&P PLAN, DATE OF SURGERY: I pointed out existing asymmetries, and discussed possibilities/likelihood of asymmetries post-operatively. I talked to her again about risks of forehead numbness (and anticipated numbness on scalp), as well as risks of damage (t ransection or neurapraxia) on the frontal branch. We discussed hairline changes and scaring, as well as risks of hair loss/alopecia around incisions. We will proceed with surgery today. Patient accepting of the risks and we will proceed.
[2024-01-12] MEDS: Cefazolin 2 GM in Syringe IV (07:37)
[2024-01-12] MEDS: Povidone Iodine 30 ML Opthalmic Sol 1 DRP ×3 (08:20)
[2024-01-12] MEDS: Bupiv/Epi 0.25% 30 ML Vial (08:21)
[2024-01-12] MEDS: Lidocaine 1% /Epi 1:100 (20ml) 20 ML Vial (08:21)
[2024-01-12] MEDS: Erythromycin Base 1 OPTH.TUBE 1 APPLIC (08:21)
[2024-01-12] MEDS: Sodium/Calcium/Mag/Potassium 15 ML Bottle (08:21)
[2024-01-12] MEDS: Bacitracin 500 UNITS/GM PACKET (10:24)
--- NOTE | 2024-01-12 10:52 | PCM.POST.ANE ---
Anesthesia: Postop Eval I Current Vital Signs Temperature: 96.9 F Pulse Rate: 75 Blood Pressure: 133/74 Respiratory Rate: 16 Pulse Ox: 95 Oxygen Delivery Method: Room Air Assessment Airway patent: Yes Spontaneous unlabored respirations: Yes Mental status: Awake and Calm nausea: No Vomiting: No Anesthesia Complication: No Fluid Hydration Crystalloid volume administer (ml): 1,000 Total IV fluid infused: 1,000 Progress Note Anesthesia document: Postop Eval 1 completed: Yes
--- NOTE | 2024-01-12 11:51 | POSTOPAN2_ITS ---
Anesthesia Postop Eval I Sum Postop Eval Completion status Anesthesia document: Postop Eval 1 completed: Yes Anesthesia Postop Eval I Summary Anesthesia Postop Eval I Summary: Anesthesia Postop Eval I: Assessment Summary Airway patent Yes 01/12/24 10:53 WIRE SPRING RELAY ADJUSTER.GDOTT Spontaneous unlabored Yes 01/12/24 10:53 WIRE SPRING RELAY ADJUSTER.GDOTT respirations Mental status Awake,Calm 01/12/24 10:53 WIRE SPRING RELAY ADJUSTER.GDOTT nausea No 01/12/24 10:53 WIRE SPRING RELAY ADJUSTER.GDOTT Vomiting No 01/12/24 10:53 WIRE SPRING RELAY ADJUSTER.GDOTT Anesthesia Postop Eval I: Fluid Summary Crystalloid volume administer 1,000 01/12/24 10:53 WIRE SPRING RELAY ADJUSTER.GDOTT (ml) Colloids volume administered ( ml) Blood Product volume administered (ml) Total IV fluid infused 1,000 01/12/24 10:53 WIRE SPRING RELAY ADJUSTER.GDOTT Anesthesia Postop Eval I: Summary Notes Anesthesia Complication No 01/12/24 10:53 WIRE SPRING RELAY ADJUSTER.GDOTT Anesthesia Complication Comment: Post-operative progress note Anesthesia: Postop Eval II Evaluation Mental status: Awake Pain Level: 0 nausea: No Vomiting: No
--- NOTE | 2024-01-12 11:51 | PCM.POSTANE2 ---
Anesthesia Postop Eval I Sum Postop Eval Completion status Anesthesia document: Postop Eval 1 completed: Yes Anesthesia Postop Eval I Summary Anesthesia Postop Eval I Summary: Anesthesia Postop Eval I: Assessment Summary Airway patent Yes 01/12/24 10:53 CHURCH ORGANIST.GDOTT Spontaneous unlabored Yes 01/12/24 10:53 CHURCH ORGANIST.GDOTT respirations Mental status Awake,Calm 01/12/24 10:53 CHURCH ORGANIST.GDOTT nausea No 01/12/24 10:53 CHURCH ORGANIST.GDOTT Vomiting No 01/12/24 10:53 CHURCH ORGANIST.GDOTT Anesthesia Postop Eval I: Fluid Summary Crystalloid volume administer 1,000 01/12/24 10:53 CHURCH ORGANIST.GDOTT (ml) Colloids volume administered ( ml) Blood Product volume administered (ml) Total IV fluid infused 1,000 01/12/24 10:53 CHURCH ORGANIST.GDOTT Anesthesia Postop Eval I: Summary Notes Anesthesia Complication No 01/12/24 10:53 CHURCH ORGANIST.GDOTT Anesthesia Complication Comment: Post-operative progress note Anesthesia: Postop Eval II Evaluation Mental status: Awake Pain Level: 0 nausea: No Vomiting: No
--- NOTE | 2024-01-12 11:57 | SUR.PHASEI ---
DR. CAMARGO CAME IN AND LOOSENED THE HEAD WRAP. HE ALSO SAID THE ICE WATER GAUZE IS TO BE CHANGED EVERY 15 MINUTES TOLERATED.
[2024-01-12] MEDS: oxyCODONE 5 MG Tablet PO (12:35)
--- NOTE | 2024-01-12 15:57 | PCM.OPRPT ---
Operative Report (Standard) Operative Information Surgery/Procedure Performed: 1) Bilateral Brow Lift, CPT 09258 (50 modifier) 2) Bilateral Blepharoplasty, CPT 52674 (50 modifier) Surgeon: Bharath Valiente Date of Procedure: 01/12/24 Procedure Start Time: 08:21 Procedure Stop Time: 10:40 Pre-Operative Diagnosis: Brow ptosis and upper eyelid dermatochalasis (bilateral) Post-Operative Diagnosis: Same Select all DRAINS/GRAFTS/IMPLANTS that apply: None Type of Anesthesia: General/Supplemental (40 cc of a 50/50 mixture of 1% lidocaine with 1:200,000 epinephrine and 0.25% Marcaine with 1:200,000 epinephrine ) Estimated Blood Loss: Minimal Fluids Replaced: 1 liter of LR Specimen collected: No Description of surgery: Indications: Wilma Rodriguez is a delightful 68-year-old female who presents today for brow lift and blepharoplasty. She understands the risks, benefits, and alternatives to the procedures. I marked her in preoperative holding, and she was accepting of the lewis/plan for incisions and change in hair line. Understood anticipated scalp numbness as well as risks of forehead numbness and neurapraxia or permanent damage to the frontal branch of the facial nerve. Also understood risks of lagophthalmos and/or need for revision surgery. Procedure details: The patient was taken back to the operating room where she was administered general anesthesia and prepped and draped in sterile fashion. Dilute Betadine was used for the prep (ophthalmic Betadine). Care was taken to protect the eyes with scleral mendez and eye lubricant. Local was injected along the scalp/forehead markings for the planned incisions for the pretrichial/coronal brow lift and it was given time to take effect. All proper timeouts were performed. A 15 blade scalpel was used to incise along the hairline medially and into the scalp laterally. A Bovie was then used to dissect carefully through the subcutaneous tissue and the galea into a subgaleal plane. Centrally the dissection was carried out along the forehead in a subgaleal plane until 2 cm above the orbital rim where the plane was transitioned into a subperiosteal plane where the periosteum was carefully elevated off of the forehead and the orbital rim with the periosteal elevator with care taken to preserve the supratrochlear and supraorbital nerves. Laterally the incision was taken down through the temporoparietal fascia and along the deep temporal fascia to dissect caudally with care taken to stay in this deep plane to prevent injury to the frontal branch of the facial nerve. The temporal septum/temporal ligamentous adhesion was then carefully elevated with a periosteal elevator to connect the deep temporal fascial plane laterally to a subperiosteal plane on the forehead, again with care taken to stay deep to the facial nerve. Hemostasis was obtained with careful Bovie electrocautery and irrigation. We then sat the patient up. The release of these brow attachments (septum, zone of adhesion, and supraorbital rim) demonstrated significant brow laxity/movement and the skin and scalp was then tailor tacked back into a cephalad position by darting along the flap and careful examination how much to safely resect. With approximately 1.2 cm of skin and scalp resection, the brow was elevated symmetrically into a good position above the orbital rim. The brow position was then also checked by considering a theoretical oval formed by the eyebrow above and the nasojugal fold below the globe, with the pupil at its equator. The deep layer of galea was then closed with 3-0 PDS deep sutures followed by some 4-0 Vicryl sutures. Christel were placed in the scalp area laterally and 6-0 Prolene vertical mattress sutures were placed in the pretrichial areas of the incision. I then considered a blepharoplasty; this was determined to be safe, as there was still some excess upper eyelid skin following the brow lift that could be safely resected based on the pinch test. I adjusted my upper jam as needed, keeping the lower eyelid crease jam the same (1 cm above the eyelid margin). The area was injected with local, which was given time to take effect. I think excised the excess skin with a 15 blade scalpel (skin only). There was 22 mm of skin left between the eyelid margin and the brow. Hemostasis was obtained with Bovie electrocautery. The same procedure was performed on the contralateral side. The eyelids were then closed with a running 6-0 Prolene suture (tails were taped medially and laterally. The patient tolerated the procedure well. The scleral mendez were removed. Her hair was washed and a final block was performed along the incision line with local. Bacitracin was applied along the incision line. A Kerlix and Coban wrap was then applied to the head/forehead. She was awakened and taken the PACU in stable condition. Surgical Findings: Good brow elevation with coronal brow lift, but still candidate for blepharoplasty after the brow lift. Psychologist Counseling retail event assistant: Yes Library Customer Service Clerk: Emily Khan Tasks completed by graduate assistant athletic trainer: Retracting Complications Complications: No Admit VTE Documentation VTE Mechan Device Prophylaxis: SCD's
== END 2024-01-12 14:59 | disposition home or self-care (01) ==
LOC: SDC 05:59 → AC 06:01
PROVIDERS: PCP Family Medicine; Referring Provider Surgery Plastic and Reconstructive Surgery; Visit Provider Surgery Plastic and Reconstructive Surgery
PROC: (CPT 67900; principal; 2024-01-12 07:20)
DX: H57.813 Brow ptosis, bilateral (principal); J44.9 Chronic obstructive pulmonary disease, unspecified; H02.831 Dermatochalasis of right upper eyelid; H02.834 Dermatochalasis of left upper eyelid; I10 Essential (primary) hypertension; E78.00 Pure hypercholesterolemia, unspecified; F17.210 Nicotine dependence, cigarettes, uncomplicated; I25.2 Old myocardial infarction; Z79.82 Long term (current) use of aspirin; Z79.51 Long term (current) use of inhaled steroids
CPT/HCPCS: 67900; 15822; 00103; 93005; J7120; J2405

== ENCOUNTER → 2024-04-04 | Outpatient (CLI) | payer MEDICARE, SELFPAY ==
--- NOTE | 2024-04-04 14:59 | RAD_ITS ---
EXAM: XR Right Knee Complete, 4 or More Views CLINICAL INDICATION: TECHNIQUE: Four or more views of the right knee. COMPARISON: No relevant prior studies available. FINDINGS: BONES/JOINTS: Unremarkable. No acute fracture. No dislocation. SOFT TISSUES: Unremarkable. RAD/Knee 4 or More Views IMPRESSION: No acute fracture. Reading [facility]
== END | disposition home or self-care (01) ==
LOC: MTRAD 14:42
PROVIDERS: PCP Family Medicine; Referring Provider Family Medicine; Visit Provider Family Medicine
DX: M25.561 Pain in right knee (principal)
CPT/HCPCS: 73564